=== PATIENT | male | born 1995 ===

== ENCOUNTER 2024-10-24 20:58 | Emergency (ER) | payer MEDICAID, SELFPAY ==
[2024-10-24 21:09] VITALS: BP 156/81; PULSE 76; RESP 18; TEMP 36.8; O2SAT 98; BMI 25.7
--- NOTE | 2024-10-24 21:44 | ED_ITS ---
HPI - General Adult General Time Seen by Provider: 21:44 Date Seen: 10/24/24 Chief complaint: Flank Pain Stated complaint: Right side flank pain Time Seen by Provider: 10/24/24 21:44 Source: patient and RN notes reviewed Mode of arrival: ambulatory Limitations: no limitations History of Present Illness HPI narrative: This 29yo male is coming into the ED with low back pain that started suddenly tonight after bending over to pick something up. 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 He denies any trauma, has not been sick, no fevers or chills, no associated urinary changes, pain is not going down into his legs. Standing/walking hurt in his low back, he feels that the right low back is worse than the left, feels that he cannot stand straight right now. He tried 2 Tylenol earlier, tried some topical muscle pain reliever that is over the counter. He has occasional had some twinges in his back but nothing like this. Related Data Home Medications ?Medication ?Instructions ?Recorded ?Confirmed No Known Home Medications 10/24/24 10/24/24 Allergies Allergy/AdvReac Type Severity Reaction Status Date / Time No Known Drug Allergies Allergy Verified 10/24/24 21:11 Review of Systems Narrative: As per HPI. PFSH PFS Social History Smoking Status: Never smoker How often do you have a drink containing alcohol: never AUDIT-C Alcohol total score: 0 Non-prescribed substance use: denies use Exam Const: Vital Signs, click to edit/add: Vital Signs - 24 hr 10/24/24 21:09 Temperature 98.2 F Pulse Rate [Right Pulse Oximeter] 76 Respiratory Rate 18 Blood Pressure [Ri ght Upper Arm] 156/81 H Pulse Oximetry 98 Oxygen Delivery Me thod Room Air Patient is alert, interactive, lying flat on the ED bed. Sclera clear. CV regular rate and rhythm, no murmur, normal S1 and S2. Abdomen is soft, nontender, nondistended, no masses, no rebound or guarding. Rolls to side which does cause him some discomfort, no midline tenderness of spine. No visual skin changes of rash, discoloration. Has right greater than left paraspinous tenderness over the lumbar muscles just above iliac crests. Normal neurologic status of lower extremities but lifting his legs off the bed does increase the low back pain, does not cause radiation of pain into legs. Documenting provider has reviewed patient's vital signs: yes Course Course ED Course: Reviewed with patient that he very likely has some musculoskeletal low back pain. He does then remember one episode maybe few years ago but was only a couple of days of discomfort and not this bad. Will try some toradol, nursing staff had placed IV on arrival thinking that this may be kidney stone. Urinalysis is also pending. Reevaluation(s) Time of Reevaluation #1: 23:18 Reevaluation #1: Have reviewed with patient his x-ray report. He does have spondylosis of the lumbar spine. We discussed degenerative changes of the back, limiting activities. I would recommend that he follow up in clinic, potentially be scheduled with Physical therapy for rehabilitation in teaching of strengthening exercises of his back. We discussed use of some oral Toradol and Flexeril which I will write from [employer]. I will provide a note to be off work the next couple days. He would like to follow up in our system. He lives in [place], discussed the [facility] which would be closer for him. He does not have a primary care provider. Twenty tablets of the Toradol and 15 tablets of the Flexeril will be administered from [employer]. Vital Signs Vital signs: Initial Vital Signs Temperature 98.2 F 10/24/24 21:09 Temperature Source Temporal Artery Scan 10/24/24 21:09 Pulse Rate 76 10/24/24 21:09 Respiratory Rate 18 10/24/24 21:09 Blood Pressure 156/81 H 10/24/24 21:09 Blood Pressure Mean 106 H 10/24/24 21:09 Blood Pressure Position Sitting 10/24/24 21:09 Pulse Oximetry 98 10/24/24 21:09 Oxygen Delivery Method Room Air 10/24/24 21:09 Vital Signs Temperature 98.2 F 10/24/24 21:09 Pulse Rate 76 10/24/24 21:09 Respiratory Rate 18 10/24/24 21:09 Blood Pressure 156/81 H 10/24/24 21:09 Pulse Oximetry 98 10/24/24 21:09 Oxygen Delivery Method Room Air 10/24/24 21:09 Temperature 98.2 F 10/24/24 21:09 Pulse Rate 76 10/24/24 21:09 Respiratory Rate 18 10/24/24 21:09 Blood Pressure 156/81 H 10/24/24 21:09 Pulse Oximetry 98 10/24/24 21:09 Oxygen Delivery Method Room Air 10/24/24 21:09 Medications Administered Medications: Discontinued Medications Generic Name Dose Route Start Last Admin Trade Name Freq PRN Reason Stop Dose Admin Ketorolac Tromethamine 15 mg 10/24/24 21:49 10/24/24 21:54 Ketorolac 15 Mg/Ml Inj IVP 10/24/24 21:50 15 mg ONCE ONE Administration Medical Decision Making Lab Data Lab results reviewed: Yes I reviewed the patient's lab results Labs: Lab Results 10/24/24 Range/Units 21:32 Urine Color Yellow (Yellow) Urine Appearance Clear (Clear) Urine pH 7.0 (5.0-8.5) Ur Specific [place] 1.020 (1.000-1.030) Urine Protein Negative (Negative) Urine Glucose (UA) Negative (Negative) Urine Ketones Negative (Negative) Urine Blood Negative (Negative) Urine Nitrite Negative (Negative) Urine Bilirubin Negative (Negative) Urine Urobilinogen 0.2 (0.2-1.0) Ur Leukocyte Esterase Negative (Negative) Imaging Data XR lumbar spine: Attestation: I have reviewed the pertinent imaging results. Radiologist's impression: Patient: BROOK MOCTEZUMA Facility:?[facility] Patient ID:?[id number] Site Patient ID:?[id number]. Site :?[id number] Study:?XRay-Spine Lumbar 3v-10/24/2024 10:35:34 PM Ordering Physician:?Arnulfo Martins Final Report: Indication: Low back pain. Technique: Three views of the lumbar spine. Comparison: None. Findings: No acute fracture or suspicious osseous lesion. The lumbar vertebral bodies maintain their normal heights with preservation of the lumbar lordosis. There is minimal retrolisthesis at L5-S1. Mild multilevel spondylosis is noted with small endplate osteophytes. No advanced disc space height loss is evident. Mild lower lumbar facet arthropathy. No suspicious soft tissue abnormality. Impression: Mild multilevel spondylosis with mild lower lumbar facet arthropathy. No acute osseous abnormality. Dictated by Demetrius Galo MD @ 10/24/2024 11:06:55 PM (Electronic Signature) Discharge Plan Discharge Clinical Impression: Spondylosis Acute lumbar back pain Qualifiers: Back pain laterality: bilateral Sciatica presence: without sciatica Qualified Code(s): M54.50 - Low back pain, unspecified Patient Disposition: Home, Self-Care Condition: Stable Instructions: Acute Low Back Pain (ED) Additional Instructions: Try the Toradol 10 mg up to 4 times a day as needed for pain. Start Tylenol 1000 mg 3 times a day baseline for pain, can use this in addition to the Toradol. Can use the Flexeril which is a muscle relaxant; this is 10 mg 3 times a day as needed. Do not recommend driving or operating machinery while on this as it can be sedating. Please contact the [facility] to get scheduled for a follow-up. Phone number to that clinic is [phone]. Consider physical therapy referral which you can get at followup for strengthening exercises for your back. Activity Level: Activity as Tolerated Prescriptions: No Action No Known Home Medications Follow Up/Referrals: Provider,Not a Local [Primary Care Provider] - Stand Alone Forms: [employer] Info Instructions
--- NOTE | 2024-10-24 21:50 | CRLHL7_ITS ---
For Patients: As a result of the Century Cures Act, medical imaging exams and procedure reports are released immediately into your electronic medical record. You may view this report before your referring provider. If you have questions, please contact your health care provider. Indication: Low back pain. Technique: Three views of the lumbar spine. Comparison: None. Findings: No acute fracture or suspicious osseous lesion. The lumbar vertebral bodies maintain their normal heights with preservation of the lumbar lordosis. There is minimal retrolisthesis at L5-S1. Mild multilevel spondylosis is noted with small endplate osteophytes. No advanced disc space height loss is evident. Mild lower lumbar facet arthropathy. No suspicious soft tissue abnormality. Impression: Mild multilevel spondylosis with mild lower lumbar facet arthropathy. No acute osseous abnormality. Dictated by Demetrius Galo MD @ 10/24/2024 11:06:55 PM (Electronically Signed)
[2024-10-24 21:52] LABS: Appearance Urine Clear (Clear); Bilirubin Urine Negative (Negative); Blood Urine Negative (Negative); Color Urine Yellow (Yellow); Glucose Urine Negative (Negative); Ketones Urine Negative (Negative); Leukocyte Esterase Urine Negative (Negative); Nitrite Urine Negative (Negative); Protein Urine Negative (Negative); Urobilinogen Urine 0.2 (0.2-1.0)
[2024-10-24] MEDS: KETOROLAC 15 MG/ML inj IVP (21:54)
== END 2024-10-24 23:43 | disposition home or self-care (01) ==
PROVIDERS: Emergency Provider Family Medicine
DX: M47.9 Spondylosis, unspecified (principal); M54.50 Low back pain, unspecified
CPT/HCPCS: 72100; 81003; 96374; 99283; 99284; J1885